=== PATIENT | male | born 1970 | race Caucasian/White ===

== ENCOUNTER 2016-11-30 12:31 | Emergency (ER) | payer MEDICARE, MEDICAID ==
[2016-11-30 13:23] VITALS: TEMP 97.5; BMI 21.9
[2016-11-30 13:45] LABS: MPV 8.9 fL (7.4-10.4)
[2016-11-30] MEDS ORDERED: ONDANSETRON HCL 4 MG/2 ML VIAL IV STA (13:47)
[2016-11-30 14:00] LABS: VENOUS BEb -2.4 (+/- 2); VENOUS TCO2 25.1 MMOL/L (23-27)
[2016-11-30 14:00] LABS: PARTIAL THROMB. TIME 23.3 SEC (22-35); PT-INR 1.1
[2016-11-30 14:01] LABS: BLOOD UREA NITROGEN 29 MG/DL (9-20); CHLORIDE 90 mEq/L (98-107); SODIUM LEVEL 136 mEq/L (137-146); TOTAL PROTEIN 9.3 G/DL (6.3-8.2)
[2016-11-30 14:06] LABS: CALCULATED OSMOLALITY 295 MOs/Kg (270-290)
[2016-11-30] MEDS ORDERED: MORPHINE 4 MG/ML INJECTION IV ONE (14:08)
[2016-11-30 14:09] LABS: GLUCOSE 583 MG/DL (70-99)
[2016-11-30] MEDS ORDERED: LABETALOL 20 MG/4 ML SYRINGE IV STA (14:09)
--- NOTE | 2016-11-30 14:14 | EDPRACDOC ---
- General Information Chief Complaint: Nausea,Vomiting,Diarrhea Stated Complaint: VOMITING X 2 DAYS Time Seen by Provider: 11/30/16 13:47 Information Source: Patient, Parent Home Medications: Home Medications Albuterol Sulfate [Ventolin Hfa] 1 - 2 puff INH Q4-6H PRN 11/30/16 Alfuzosin HCl [Uroxatral] 10 mg PO DAILY 11/30/16 Amitriptyline HCl [Elavil] 25 mg PO HS 11/30/16 Amlodipine [Norvasc] 5 mg PO DAILY 11/30/16 Aspirin/Caffeine [Bc Arthritis Powder Packet (1000mg/65mg)] 1 riri PO Q4H PRN 10/06 Atenolol [Tenormin] 50 mg PO DAILY 11/30/16 Ciprofloxacin HCl [Cipro] 500 mg PO BID #20 tab 11/30/16 Cyclobenzaprine HCl [Flexeril] 10 mg PO BID PRN 11/30/16 Diazepam [Valium] 10 mg PO BID PRN 11/30/16 Dutasteride [Avodart] 0.5 mg PO DAILY 11/30/16 Ezetimibe [Zetia] 10 mg PO DAILY 11/30/16 Fluoxetine HCl [Prozac] 20 mg PO DAILY 11/30/16 Insulin Degludec [Tresiba Flextouch U-100] 56 unit SQ DAILY 11/30/16 Lisinopril/Hydrochlorothiazide [Lisinopril-Hctz 20-25 mg Tab] 1 each PO DAILY MetFORMIN, Extended Release [Glucophage Xr] 1,000 mg PO BID 11/30/16 Omeprazole [Prilosec] 20 mg PO DAILY 11/30/16 Oxycodone HCl [Oxycodone Immediate Release] 20 mg PO Q6H PRN 11/30/16 Oxycodone HCl [Roxicodone] 5 mg PO Q4-6H PRN #15 tablet 11/30/16 Promethazine [Phenergan] 25 mg PO Q8H PRN #30 tab 11/30/16 Rosuvastatin Calcium [Crestor] 40 mg PO DAILY 11/30/16 Sumatriptan Succinate [Imitrex] 50 mg PO DIR PRN 11/30/16 Temazepam [Restoril] 15 mg PO DAILY 01/11/17 Allergies/Adverse Reactions: Allergies Allergy/AdvReac Type Severity Reaction Status Date / Time Sulfa (Sulfonamide Allergy Nausea/Vomi Verified 11/30/16 13:20 Antibiotics) ting - History of Present Illness Onset: 2 days HPI: PT PRESENTS WITH 2 DAYS OF NAUSEA AND VOMITING UNABLE TO TAKE ANY OF HIS HOME MEDICATIONS. THERE IS ACCOMPANYING UPPER ABDOMINAL PAIN RUNNING ACROSS. Symptoms Occured: Reports: Spontaneous Duration: Reports: Episodes of Vomiting Pain Severity: Moderate Pain Location: Reports: Epigastric, RUQ, LUQ Associated Signs and Symptoms: Reports: Chills, Nausea, Vomiting. Denies: Fever , Melena Oral Intake: Decreased ED Past Medical History - History Reviewed Yes Nurses notes reviewed and agree except as marked - Patient Medical History Cardiac History: Reports: Hypertension, Hypercholesterolemia GI/ History: Reports: Gastroesophageal Reflux Systemic History: Denies: Cancer - Social Medical History Smoking Status: Heavy tobacco smoker (5 or more cigarettes/day or daily pipe/ cigar) Lives With: Family Lives In: Home EDM Review of Systems - Review of Systems ROS Negative Except as Marked: Yes All systems reviewed and were negative except as marked Constitutional: Chills, Fatigue, Weakness. negative: Fever Respiratory: negative: Shortness of Breath Cardiovascular: negative: Chest Pain Gastrointestinal: Nausea, Pain, Vomiting. negative: Diarrhea Genitourinary: negative: Dysuria - Physical Exam Constitutional: Alert Oriented to: Time, Person, Place Last recorded Vital Signs: Last Vital Signs Temp 97.5 F 11/30/16 13:20 Pulse 101 11/30/16 13:20 Resp 20 11/30/16 13:20 BP 211/111 H 11/30/16 13:20 Pulse Ox 98 11/30/16 13:20 Oxygen Pulse Oxygen Saturation 98 O2 Device Room Air Oxygen Flow Rate Fraction of Inspired Oxygen ( FIO2) - HEENT Head: negative: Deformity, Laceration Eye Exam: negative: Conjunctival Injection, Pale Conjunctiva Oropharynx: Membranes Dry Nose: negative: Congestion, Discharge Neck: negative: Limited ROM - Respiratory/Cardiovascular Respiratory: Normal - CTA. negative: Accessory Muscle Use, Diminished, Tachypnea Cardiovascular: negative: Bradycardia, Tachycardia, Irregular - GI Auscultation: Normal Palpation: Normal Tenderness: Moderate, Guarding, RUQ, LUQ, Epigastric - Musculoskeletal Extremities: Radial Pulse (PALPABLE) - Integumentary Skin: Warm, Dry. negative: Rash - Neurologic Memory Impaired: Normal Motor Function: Normal Mood Description: Anxious Thought: Coherent Perception: Normal - Results 11/30/16 13:28 11/30/16 13:28 WBC 20.7 xk/uL (3.8-10.8) H 11/30/16 13:28 RBC 5.55 xM/uL (4.70-6.10) 11/30/16 13:28 Hgb 16.4 g/dL (14.0-18.0) 11/30/16 13:28 Hct 47.1 % (42-52) 11/30/16 13:28 MCV 85 fL (80-94) 11/30/16 13:28 MCH 29.6 pg (27-32) 11/30/16 13:28 MCHC 34.8 g/dl (33-36) 11/30/16 13:28 RDW 13.4 % (11.5-14.5) 11/30/16 13:28 Plt Count 374 xk/uL (130-400) 11/30/16 13:28 MPV 8.9 fL (7.4-10.4) 11/30/16 13:28 PT 11.0 SEC (9.2-11.2) 11/30/16 13:28 INR 1.1 11/30/16 13:28 APTT 23.3 SEC (22-35) 11/30/16 13:28 VBG pH 7.33 pH UNITS (7.32-7.43) 11/30/16 13:33 Mixed VBG pCO2 45.0 mmHg (40-60) 11/30/16 13:33 Mixed VBG pO2 72.0 mmHg (30-55) H 11/30/16 13:33 Mixed VBG HCO3 23.7 MMOL/L (22-27) 11/30/16 13:33 Mixed VBG Total CO2 25.1 MMOL/L (23-27) 11/30/16 13:33 Mixed VBG Base Excess -2.4 (+/- 2) L 11/30/16 13:33 Sodium 136 mEq/L (137-146) L 11/30/16 13:28 Potassium 4.4 mEq/L (3.5-5.1) 11/30/16 13:28 Chloride 90 mEq/L (98-107) L 11/30/16 13:28 Carbon Dioxide 21 mMOL/L (22-33) L 11/30/16 13:28 Anion Gap 29 mEq/L (8-16) H 11/30/16 13:28 BUN 29 MG/DL (9-20) H 11/30/16 13:28 Creatinine 1.70 MG/DL (0.66-1.25) H 11/30/16 13:28 Estimated GFR (MDRD) 43 mL/min (>=60) L 11/30/16 13:28 Glucose 583 MG/DL (70-99) H* 11/30/16 13:28 POC Capillary Glucose 574 MG/DL (70-99) H* 11/30/16 13:24 Calculated Osmolality 295 MOs/Kg (270-290) H 11/30/16 13:28 Calcium 10.0 MG/DL (8.4-10.2) 11/30/16 13:28 Total Bilirubin 0.8 MG/DL (0.2-1.3) 11/30/16 13:28 AST 34 IU/L (17-59) 11/30/16 13:28 ALT 43 IU/L (21-72) 11/30/16 13:28 Alkaline Phosphatase 96 IU/L (38-126) 11/30/16 13:28 Total Protein 9.3 G/DL (6.3-8.2) H 11/30/16 13:28 Albumin 5.0 G/DL (3.5-5.0) 11/30/16 13:28 Lab Results 11/30/16 11/30/16 11/30/16 13:33 13:28 13:28 WBC 20.7 H RBC 5.55 Hgb 16.4 Hct 47.1 MCV 85 MCH 29.6 MCHC 34.8 RDW 13.4 Plt Count 374 MPV 8.9 PT 11.0 INR 1.1 APTT 23.3 VBG pH 7.33 Mixed VBG pCO2 45.0 Mixed VBG pO2 72.0 H Mixed VBG HCO3 23.7 Mixed VBG Total CO2 25.1 Mixed VBG Base Excess -2.4 L Sodium Potassium Chloride Carbon Dioxide Anion Gap BUN Creatinine Estimated GFR (MDRD) Glucose POC Capillary Glucose Calculated Osmolality Calcium Total Bilirubin AST ALT Alkaline Phosphatase Total Protein Albumin 11/30/16 11/30/16 13:28 13:24 WBC RBC Hgb Hct MCV MCH MCHC RDW Plt Count MPV PT INR APTT VBG pH Mixed VBG pCO2 Mixed VBG pO2 Mixed VBG HCO3 Mixed VBG Total CO2 Mixed VBG Base Excess Sodium 136 L Potassium 4.4 Chloride 90 L Carbon Dioxide 21 L Anion Gap 29 H BUN 29 H Creatinine 1.70 H Estimated GFR (MDRD) 43 L Glucose 583 H* POC Capillary Glucose 574 H* Calculated Osmolality 295 H Calcium 10.0 Total Bilirubin 0.8 AST 34 ALT 43 Alkaline Phosphatase 96 Total Protein 9.3 H Albumin 5.0 - EKG EKG #1 EKG Time: 13:45 -: Yes EKG interpreted by me Rate: bpm: 87 Rhythm: NSR Block: None ST: Nonsp - Departure Yes I personally saw and evaluated the patient. Disposition: Home Condition: Stable Final Diagnosis: Nausea and vomiting Instructions: Acute Nausea and Vomiting (ED), Acute Diarrhea (ED) Education/Counseling Given To: Patient Education/Counseling Given Regarding: Diagnosis, Treatment, Prognosis, Follow Up Referrals: Emilee Burns MD [Primary Care Provider] - Call for Appointment Prescriptions: Ciprofloxacin HCl [Cipro] 500 mg PO BID #20 tab Oxycodone HCl [Roxicodone] 5 mg PO Q4-6H PRN #15 tablet PRN Reason: Breakthrough Pain Promethazine [Phenergan] 25 mg PO Q8H PRN #30 tab PRN Reason: Nausea/Vomiting
[2016-11-30] MEDS ORDERED: NS 1,000 ML IV ONE ×2 (14:15→15:48)
--- NOTE | 2016-11-30 14:17 | DIRPT ---
CLINICAL DATA: Chest pain and nausea and vomiting for 2 days. COPD. Smoker. EXAM: PORTABLE CHEST 1 VIEW COMPARISON: None. FINDINGS: The heart size and mediastinal contours are within normal limits. Both lungs are clear. The visualized skeletal structures are unremarkable. IMPRESSION: No active disease. Electronically Signed By: Darwin Das M.D. On: 11/30/2016 14:14
[2016-11-30 14:19] LABS: SEG NEUTROPHIL 88 % (45-76)
[2016-11-30] MEDS ORDERED: REGULAR INSULIN 100 UNITS/ML - 3 ML VIAL SQ ONE (14:34)
[2016-11-30 14:56] LABS: LEUKOCYTES/URINE NEG (NEGATIVE); NITRITE/URINE NEG (NEGATIVE); URINE OCCULT BLOOD 1+ (NEG/TRACE); WBC/URINE 0-2 (0-2)
[2016-11-30] MEDS ORDERED: Pharmacy Review for Metformin - IV Contrast Given SCH (15:00)
--- NOTE | 2016-11-30 15:40 | DIRPT ---
CLINICAL DATA: Abdominal pain with nausea and vomiting for 2 days. EXAM: CT ABDOMEN AND PELVIS WITH CONTRAST TECHNIQUE: Multidetector CT imaging of the abdomen and pelvis was performed using the standard protocol following bolus administration of intravenous contrast. CONTRAST: 80 mL Isovue 370 COMPARISON: None. FINDINGS: Lower chest: No acute findings. Hepatobiliary: Mild diffuse hepatic steatosis noted. No liver masses are identified. Gallbladder is unremarkable. Pancreas: No mass, inflammatory changes, or other significant abnormality. Spleen: Within normal limits in size and appearance. Adrenals/Urinary Tract: No masses identified. No evidence of hydronephrosis. Stomach/Bowel: No evidence of obstruction, inflammatory process, or abnormal fluid collections. Normal appendix visualized. Vascular/Lymphatic: No pathologically enlarged lymph nodes. No evidence of abdominal aortic aneurysm. Aortic atherosclerotic plaque noted. Reproductive: No mass or other significant abnormality. Other: None. Musculoskeletal: No suspicious bone lesions identified. IMPRESSION: No acute findings within the abdomen or pelvis. Mild hepatic steatosis. Electronically Signed By: Darwin Das M.D. On: 11/30/2016 15:38
[2016-11-30] MEDS ORDERED: CIPROFLOXACIN HCL 500 MG TAB PO STA (16:17)
[2016-11-30 17:01] VITALS: BP 153/92; PULSE 99
== END 2016-11-30 17:10 | disposition home or self-care (01) ==
LOC: ED 12:31
DX: R11.2 Nausea with vomiting, unspecified (principal)
CPT/HCPCS: 36415; 71010; 74177; 80053; 81001; 82803; 82962; 83880; 84484; 85007; 85027; 85610; 85730; 93005; 96361; 96372; 96374; 96375; 99284; A9270; A9698; J2270; J2405; J3490

== ENCOUNTER 2016-12-11 03:17 | Emergency (ER) | payer MEDICARE, MEDICAID ==
[2016-12-11 03:31] VITALS: TEMP 98.5; BMI 25.0
[2016-12-11] MEDS ORDERED: PROMETHAZINE 25 MG/ML VIAL IV STA ×2 (03:39→05:10)
[2016-12-11] MEDS ORDERED: NS 1,000 ML IV ONE ×4 (03:39→06:13)
[2016-12-11 03:47] LABS: AUTOMATED BASOPHIL 0.7 % (0-2); AUTOMATED EOSINOPHIL 0.1 % (0-5); AUTOMATED LYMPH 13.3 % (17-44); AUTOMATED MONOCYTE 5.6 % (3-10); AUTOMATED NEUTROPHIL 80.3 % (45-76); MPV 9.1 fL (7.4-10.4)
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
[2016-12-11 03:57] LABS: BLOOD UREA NITROGEN 38 MG/DL (9-20); CALCULATED OSMOLALITY 287 MOs/Kg (270-290); CHLORIDE 95 mEq/L (98-107); CPK TOTAL WITH POSSIBLE MB 73 IU/L (55-170); GLUCOSE 383 MG/DL (70-99); SODIUM LEVEL 136 mEq/L (137-146); TOTAL PROTEIN 8.6 G/DL (6.3-8.2)
[2016-12-11 03:58] LABS: PARTIAL THROMB. TIME 22.4 SEC (22-35); PT-INR 1.1
[2016-12-11 04:24] LABS: ALL NEG? NO
[2016-12-11 04:27] LABS: LEUKOCYTES/URINE NEG (NEGATIVE); NITRITE/URINE NEG (NEGATIVE); URINE OCCULT BLOOD NEG (NEG/TRACE); WBC/URINE 0-2 (0-2)
[2016-12-11 04:32] LABS: MDMA* NEG (NEGATIVE); METHAMPHETAMINES NEG (NEGATIVE); OXYCODONE NEG (NEGATIVE)
[2016-12-11] MEDS ORDERED: REGULAR INSULIN 100 UNITS/ML - 3 ML VIAL SQ ONE (05:43)
[2016-12-11] MEDS ORDERED: MORPHINE 4 MG/ML INJECTION IV ONE (06:34)
[2016-12-11 09:12] LABS: BLOOD UREA NITROGEN 32 MG/DL (9-20); CALCIUM 7.8 MG/DL (8.4-10.2); CALCULATED OSMOLALITY 281 MOs/Kg (270-290); CHLORIDE 105 mEq/L (98-107); GLUCOSE 239 MG/DL (70-99); SODIUM LEVEL 138 mEq/L (137-146)
[2016-12-11 09:59] VITALS: BP 143/81; PULSE 88
== END 2016-12-11 10:01 | disposition home or self-care (01) ==
LOC: ED 03:17
DX: E86.0 Dehydration (principal); R10.9 Unspecified abdominal pain; R11.2 Nausea with vomiting, unspecified; N28.9 Disorder of kidney and ureter, unspecified
CPT/HCPCS: 36415; 80048; 80053; 80307; 81001; 82550; 82962; 83605; 83690; 84484; 85025; 85610; 85730; 93005; 96361; 96372; 96374; 96375; 96376; 99284; A9270; J2270; J2550; J3490